=== PATIENT | female | born 1980 | race Caucasian/White ===

== ENCOUNTER 2017-12-23 10:24 | Emergency (ER) | payer MEDICAID ==
[2017-12-23 11:04] LABS: HCG UR QUAL POSITIVE
--- NOTE | 2017-12-23 13:17 | ED Physician Documentation ---
History of Present Illness - Stated complaint Stated Complaint: COUGH - Chief complaint Chief Complaint: Resp - History obtained from History obtained from: Patient - History of Present Illness Timing: How many days ago (4) Pain level max: 4 Pain level now: 3 Improved by: rest Worsened by: nothing - Additonal information Additional information: Patient states that she has been vomiting for 4 days. States diffuse, constant abd pain. 03/18. States sore throat and fevers for 3 days. Now with vaginal bleeding x 2 weeks. Has not been seen anywhere for this. Taking ibuprofen for fevers. Review of Systems Ten Systems: 10 systems reviewed and negative Constitutional: reports: Fever (subjective) Ears: denies: Ear pain Nose: reports: Rhinorrhea / runny nose, Congestion Throat: reports: Sore throat GI: reports: Nausea, Vomiting. denies: Diarrhea : reports: Now EGA (possible). denies: Dysuria, Frequency, Hesitancy Skin: denies: Rash Musculoskeletal: denies: Neck pain, Back pain PD PAST MEDICAL HISTORY - Past Medical History Past Medical History: No - Past Surgical History Past Surgical History: No - Present Medications Home Medications: Ambulatory Orders Medication Instructions Recorded Confirmed Metoclopramide [Reglan] 5 - 10 mg PO Q6H PRN #20 tablet 12/23/17 - Allergies Allergies/Adverse Reactions: Allergies Allergy/AdvReac Type Severity Reaction Status Date / Time No Known Drug Allergies Allergy Verified 12/23/17 10:37 - Social History Does the pt smoke?: Yes Smoking Status: Current every day smoker Does the pt drink ETOH?: Yes Does the pt have substance abuse?: No - Immunizations Immunizations are current?: Yes PD ED PE NORMAL - Vitals Vital signs reviewed: Yes - General General: Alert and oriented X 3, No acute distress - HEENT HEENT: PERRL, Ears normal, Moist mucous membranes, Other (Mild posterior pharyngeal erythema without tonsillar exudates. Uvula midline. No trismus.) - Neck Neck: Supple, no meningeal sign, No adenopathy - Cardiac Cardiac: RRR, Strong equal pulses - Respiratory Respiratory: No respiratory distress, Clear bilaterally - Abdomen Abdomen: Soft, Non distended, Other (diffusely tender to palpation without peritoneal signs.) - Female Female : Pt declined (States her bleeding is now mostly resolved) - Back Back: No CVA TTP, No spinal TTP - Derm Derm: Warm and dry - Neuro Neuro: Alert and oriented X 3 - Psych Psych: Normal mood, Normal affect Results - Vitals Vitals: Vital Signs - 24 hr 12/23/17 12/23/17 12/23/17 10:34 15:33 17:39 Temperature 36.6 C Heart Rate 77 60 61 Respiratory 18 16 16 Rate Blood Pressure 137/80 H 126/70 135/86 H O2 Saturation 98 97 100 Oxygen O2 Source Room air - Labs Labs: Laboratory Tests 12/23/17 12/23/17 12/23/17 10:39 10:40 13:59 WBC 6.1 RBC 4.46 Hgb 13.8 Hct 39.6 MCV 88.9 MCH 31.0 MCHC 34.9 RDW 13.2 Plt Count 203 MPV 8.5 Neut # 3.1 Lymph # 2.2 Rush # 0.5 Eos # 0.1 Baso # 0.1 Absolute Nucleated RBC 0.00 Nucleated RBC % 0.0 Sodium Potassium Chloride Carbon Dioxide Anion Gap BUN Creatinine Estimated GFR (MDRD) Glucose Calcium Total Bilirubin AST ALT Alkaline Phosphatase Total Protein Albumin Globulin Albumin/Globulin Ratio Lipase HCG, Quant Ur Specific [place] 1.010 Urine HCG, Qual POSITIVE Influenza A (Rapid) Negative Influenza B (Rapid) Negative Influenza Types A,B Ag - Blood Type Antibody Screen 12/23/17 12/23/17 12/23/17 13:59 13:59 13:59 WBC RBC Hgb Hct MCV MCH MCHC RDW Plt Count MPV Neut # Lymph # Rush # Eos # Baso # Absolute Nucleated RBC Nucleated RBC % Sodium 137 Potassium 3.1 L Chloride 104 Carbon Dioxide 25 Anion Gap 8.0 BUN 7 Creatinine 0.6 Estimated GFR (MDRD) 114 Glucose 82 Calcium 8.4 L Total Bilirubin 0.4 AST 34 ALT 40 Alkaline Phosphatase 51 Total Protein 6.6 L Albumin 3.9 Globulin 2.7 Albumin/Globulin Ratio 1.4 Lipase 12 L HCG, Quant 24515.00 Ur Specific [place] Urine HCG, Qual Influenza A (Rapid) Influenza B (Rapid) Influenza Types A,B Ag Blood Type O NEGATIVE Antibody Screen NEGATIVE - Rads (name of study) Pelvic ultrasound Radiology: Prelim report reviewed, EMP read contemporaneously, See rad report ( Single viable intrauterine at EGA 6 weeks 4 days with RIGOBERTO 08/14/2018 based on crown-rump length, which is concordant with clinical dates. Signed dating is RIGOBERTO 08/18/2018 based on LMP. Complex heather-gestational fluid collection) PD MEDICAL DECISION MAKING - ED course Complexity details: reviewed results, re-evaluated patient, considered differential, d/w patient, d/w family ED course: Patient is a 37-year-old female presents to the emergency department with what appears to be a viral upper respiratory infection. This appears to be complicated by a 6 week . There is a heart rate and a viable IUP. Will refer to OB for further care. Declines a pelvic examination here. We will continue supportive care for her viral URI. No evidence of pneumonia, sepsis. Will prescribe Reglan for vomiting. Tolerating p.o. well here. Feels better after IV fluids. Patient counseled regarding signs and symptoms for which I believe and urgent re-evaluation would be necessary. Patient with good understanding of and agreement to plan and is comfortable going home at this time This document was made in part using voice recognition software. While efforts are made to proofread this document, sound alike and grammatical errors may occur. Departure - Departure Disposition: 01 Home, Self Care Clinical Impression: Threatened affecting intrauterine Upper respiratory tract infection Qualifiers: URI type: unspecified URI Qualified Code(s): J06.9 - Acute upper respiratory infection, unspecified Qualifiers: Weeks of gestation: less than 8 weeks Qualified Code(s): Z3A.01 - Less than 8 weeks gestation of Condition: Good Instructions: ED Miscarriage Poss, ED Care Follow-Up: [facility] [Provider Group] - Within 3 Days (for recheck of your HCG levels) Prescriptions: Metoclopramide [Reglan] 5 - 10 mg PO Q6H PRN #20 tablet PRN Reason: Nausea / Vomiting Comments: Drink plenty of fluids and rest. It appears that you are approximately 6 weeks today. you need to follow-up with OB for further care. Discharge Date/Time: 12/23/17 17:44
[2017-12-23] MEDS ORDERED: SODIUM CHLORIDE 0.9% 1,000 ML IV ONE (13:20)
[2017-12-23 14:11] LABS: BASOPHILS # (AUTO) 0.1 10^3/uL (0.0-0.1); BASOPHILS % (AUTO) 1.2 %; EOSINOPHILS # (AUTO) 0.1 10^3/uL (0.0-0.7); EOSINOPHILS % (AUTO) 2.3 %; HGB - HEMOGLOBIN 13.8 g/dL (12.0-16.0); LYMPHOCYTES # (AUTO) 2.2 10^3/uL (1.5-3.5); MEAN CORPUSCULAR HGB CONC 34.9 g/dL (32.0-36.0); MEAN CORPUSCULAR VOLUME 88.9 fL (81.0-99.0); MEAN PLATELET VOLUME 8.5 fL (7.9-10.8); MONOCYTES # (AUTO) 0.5 10^3/uL (0.0-1.0); MONOCYTES % (AUTO) 7.5 %; NEUTROPHILS # (AUTO) 3.1 10^3/uL (1.5-6.6); PLT - PLATELET COUNT 203 10^3/uL (130-450); RED BLOOD COUNT 4.46 10^6/uL (4.20-5.40); RED CELL DISTRIBUTION WIDTH 13.2 % (12.0-15.0); WHITE BLOOD COUNT 6.1 x10^3/uL (4.8-10.8)
[2017-12-23 14:26] LABS: ALBUMIN 3.9 g/dL (3.2-5.5); ALBUMIN/GLOBULIN RATIO 1.4 (1.0-2.2); BILIRUBIN,TOTAL 0.4 mg/dL (0.2-1.0); CALCIUM 8.4 mg/dL (8.5-10.3); CREATININE 0.6 mg/dL (0.4-1.0); TOTAL PROTEIN 6.6 g/dL (6.7-8.2)
[2017-12-23] MEDS ORDERED: ACETAMINOPHEN 325 MG TABLET PO STA (15:40)
[2017-12-23 17:40] VITALS: BP 135/86
--- NOTE | 2017-12-23 17:44 | Ultrasound Preliminary Report ---
Exam: US OB FIRST TRIMESTER IMPRESSION: 1. Single viable intrauterine at EGA 6 weeks 4 days with RIGOBERTO 08/14/2018 based on crown-rump length, which is concordant with clinical dates. 2. Assigned dating is RIGOBERTO 08/18/2018 based on LMP. 3. Complex perigestational fluid collection. [facility] SITE ID: [id number]
--- NOTE | 2017-12-23 17:44 | Ultrasound Report ---
EXAM: FIRST TRIMESTER OBSTETRIC ULTRASOUND (Less than 11 weeks) EXAM DATE: 12/23/2017 05:17 PM. CLINICAL HISTORY: Abd pain, vag bleed, + preg test. LMP: 11/11/2017. COMPARISONS: None. TECHNIQUE: Transabdominal and transvaginal ultrasound examination with static image documentation. CLINICAL DATES: EGA 6 weeks 0 days with RIGOBERTO 08/18/2018 based on LMP. ASSESSMENT: Gestational Sac: Single intrauterine. Mean gestational sac diameter: 16.8 mm = 6 weeks 0 days. Embryo: CRL (crown-rump length) 6.8 mm = 6 weeks 4 days. Cardiac activity: 135 beats per minute. Yolk sac: 2.5 mm. Amniotic fluid: Not accurately assessed at this gestational age. Early placenta: Not visible at this gestational age. Other: Complex perigestational fluid collection measuring 18.5 x 15.5 x 29.5 mm. MATERNAL STRUCTURES: Uterus: Anteverted. Unremarkable. Cervix: Closed. Right Ovary/Adnexa: Unremarkable. The ovary measures 2.9 x 1.6 x 2.5 cm, volume 6.0 cc. Left Ovary/Adnexa: Unremarkable. The ovary measures 2.3 x 1.3 x 2.4 cm, volume 3.8 cc. Free Fluid: None. Other: None. IMPRESSION: 1. Single viable intrauterine at EGA 6 weeks 4 days with RIGOBERTO 08/14/2018 based on crown-rump length, which is concordant with clinical dates. 2. Assigned dating is RIGOBERTO 08/18/2018 based on LMP. 3. Complex perigestational fluid collection. [facility] Referring Provider Line: [phone] SITE ID: [id number]
== END 2017-12-23 17:44 | disposition home or self-care (01) ==
LOC: ED 10:24
DX: O20.0 Threatened abortion (principal); O99.511 Diseases of the respiratory system complicating pregnancy, first trimester; J06.9 Acute upper respiratory infection, unspecified; B97.89 Other viral agents as the cause of diseases classified elsewhere; Z3A.01 Less than 8 weeks gestation of pregnancy; F17.200 Nicotine dependence, unspecified, uncomplicated
CPT/HCPCS: 36415; 76801; 76830; 80053; 81025; 83690; 84702; 85025; 86850; 86900; 86901; 87275; 87276; 96360; 96361; 99283; 99284; A9270; 81001; 81003; 87086

== ENCOUNTER 2018-01-30 08:00 | Outpatient (CLI) | payer MEDICAID | END 2018-01-30 08:01 | disposition home or self-care (01) | LOC: LAB.R 08:00 | PROVIDERS: ATTEND Obstetrics & Gynecology | DX: Z11.3 Encounter for screening for infections with a predominantly sexual mode of transmission (principal) | CPT/HCPCS: 87491; 87591 ==

== ENCOUNTER 2018-01-31 09:47 | Outpatient (CLI) | payer MEDICAID ==
[2018-01-31 10:20] LABS: BASOPHILS % (AUTO) 0.4 %; EOSINOPHILS # (AUTO) 0.2 10^3/uL (0.0-0.7); EOSINOPHILS % (AUTO) 2.3 %; HGB - HEMOGLOBIN 13.5 g/dL (12.0-16.0); LYMPHOCYTES % (AUTO) 17.6 %; MEAN CORPUSCULAR HEMOGLOBIN 31.4 pg (27.0-31.0); MEAN CORPUSCULAR HGB CONC 35.4 g/dL (32.0-36.0); MEAN CORPUSCULAR VOLUME 88.6 fL (81.0-99.0); MEAN PLATELET VOLUME 7.9 fL (7.9-10.8); MONOCYTES # (AUTO) 0.6 10^3/uL (0.0-1.0); MONOCYTES % (AUTO) 5.1 %; NEUTROPHILS # (AUTO) 8.3 10^3/uL (1.5-6.6); NEUTROPHILS % (AUTO) 74.6 %; PLT - PLATELET COUNT 265 10^3/uL (130-450); RED BLOOD COUNT 4.29 10^6/uL (4.20-5.40); RED CELL DISTRIBUTION WIDTH 13.1 % (12.0-15.0); WHITE BLOOD COUNT 11.1 x10^3/uL (4.8-10.8)
[2018-01-31 10:48] LABS: BILIRUBIN,URINE NEGATIVE (NEGATIVE); GLUCOSE, URINE (UA) NEGATIVE (NEGATIVE); KETONES,URINE (UA) NEGATIVE (NEGATIVE); LEUKOCYTE ESTERASE, URINE NEGATIVE (NEGATIVE); NITRITE,URINE NEGATIVE (NEGATIVE); OCCULT BLOOD,URINE NEGATIVE (NEGATIVE); PROTEIN,URINE NEGATIVE (NEGATIVE); UROBILINOGEN,URINE 0.2 (NORMAL) E.U./dL (NORMAL)
[2018-01-31 10:50] LABS: CLARITY,URINE CLEAR (CLEAR)
[2018-01-31 11:01] LABS: BACTERIA,URINE Rare /HPF (None Seen); RBC,URINE 0-5 /HPF (0-5); SQUAMOUS EPITHELIAL CELL,UR RARE Squamous (<= Few)
[2018-02-01 14:32] LABS: HEPATITIS B SURFACE ANTIGEN NON-REACTIVE (NON-REACTIVE)
[2018-02-01 14:48] LABS: HIV AG/AB 4TH GEN NON-REACTIVE (NON-REACTIVE)
== END 2018-01-31 09:48 | disposition home or self-care (01) ==
LOC: LAB 09:47
PROVIDERS: ATTEND Obstetrics & Gynecology
DX: Z36.9 Encounter for antenatal screening, unspecified (principal)
CPT/HCPCS: 36415; 81001; 81599; 85025; 86592; 86762; 86850; 86900; 86901; 87340; 87389

== ENCOUNTER 2018-02-26 16:08 | Outpatient (CLI) | payer MEDICAID ==
--- NOTE | 2018-02-27 10:55 | XRAY Report ---
TWO VIEW CHEST: 02/26/2018 CLINICAL INDICATION: Old myocardial infarction. FINDINGS: Frontal and lateral views of the chest demonstrate a normal cardiac silhouette. The lungs are clear. No effusion or pneumothorax is present. IMPRESSION: NORMAL CHEST. TD: 02/27/2018 10:33
== END 2018-02-26 16:09 | disposition home or self-care (01) ==
LOC: DI.N 16:08
PROVIDERS: ATTEND Obstetrics & Gynecology
DX: I25.2 Old myocardial infarction (principal)
CPT/HCPCS: 71046

== ENCOUNTER 2018-02-28 09:13 | Outpatient (CLI) | payer MEDICAID | END 2018-02-28 09:14 | disposition home or self-care (01) | LOC: DI 09:13 | PROVIDERS: ATTEND Obstetrics & Gynecology | DX: I25.2 Old myocardial infarction (principal); I51.7 Cardiomegaly | CPT/HCPCS: 93005; 93306 ==

== ENCOUNTER 2018-11-11 22:44 | Emergency (ER) | payer MEDICAID ==
[2018-11-11 23:02] VITALS: BP 160/109
[2018-11-11] MEDS ORDERED: IBUPROFEN 800 MG TABLET PO STA (23:08)
[2018-11-11] MEDS ORDERED: BENZONATATE 100 MG CAPSULE PO STA (23:08)
--- NOTE | 2018-11-11 23:10 | ED Physician Documentation ---
PD HPI URI - Stated complaint Stated Complaint: SOA/FEVER - Chief complaint Chief Complaint: Resp - History obtained from History obtained from: Patient - History of Present Illness Timing - onset: How many weeks ago (More than one week.) Timing details: Gradual onset Associated symptoms: Fever, Chills, Nasal congestion, Sore throat, Productive cough Contributing factors: Sick contact ( daughter is sick with similar symptoms.) Similar symptoms before: Has not had sx before - Additional information Additional information: The patient is a 38-year-old female who presents with cough of more than 1 week duration, with associated fever and chills, myalgias, and sore throat. Her cough is mildly productive of sputum. She reports associated headache. She denies abdominal pain, nausea or vomiting. Her infant daughter has been sick with similar symptoms. Review of Systems Constitutional: reports: Fever, Chills, Myalgias, Fatigue Eyes: denies: Irritation Ears: denies: Ear pain Nose: reports: Congestion Throat: reports: Sore throat Cardiac: denies: Chest pain / pressure Respiratory: reports: Cough. denies: Dyspnea GI: denies: Abdominal Pain, Nausea, Vomiting : denies: Dysuria Skin: denies: Rash Musculoskeletal: denies: Back pain Neurologic: reports: Headache PD PAST MEDICAL HISTORY - Past Medical History Past Medical History: No Endocrine/Autoimmune: None - Past Surgical History Past Surgical History: No - Present Medications Home Medications: Ambulatory Orders Medication Instructions Recorded Confirmed Benzonatate [Tessalon Perle] 100 - 200 mg PO TID PRN #30 capsule 11/11/18 - Allergies Allergies/Adverse Reactions: Allergies Allergy/AdvReac Type Severity Reaction Status Date / Time No Known Drug Allergies Allergy Verified 11/11/18 23:02 - Social History Does the pt smoke?: No Smoking Status: Never smoker Does the pt drink ETOH?: Yes Does the pt have substance abuse?: No - Immunizations Immunizations are current?: Yes - POLST Patient has POLST: No PD ED PE NORMAL - Vitals Vital signs reviewed: Yes (Initially hypertensive.) - General General: Alert and oriented X 3, Well developed/nourished, Other (Appears miserable.) - HEENT HEENT: Atraumatic, EOMI, Ears normal, Pharynx benign - Neck Neck: Supple, no meningeal sign, No adenopathy - Cardiac Cardiac: RRR, No murmur - Respiratory Respiratory: Clear bilaterally - Abdomen Abdomen: Soft, Non tender - Back Back: No CVA TTP - Derm Derm: No rash - Extremities Extremities: No edema, No calf tenderness / cord - Neuro Neuro: Alert and oriented X 3, No motor deficit, Normal speech Results - Vitals Vitals: Vital Signs - 24 hr 11/11/18 22:59 Temperature 36.4 C L Heart Rate 97 Respiratory 16 Rate Blood Pressure 160/109 H O2 Saturation 95 Oxygen O2 Source Room air - Labs Labs: Laboratory Tests 11/11/18 23:20 Influenza A (Rapid) Negative Influenza B (Rapid) Negative PD MEDICAL DECISION MAKING - ED course Complexity details: reviewed results, re-evaluated patient, considered differential, d/w patient ED course: The patient's presentation is most consistent with viral upper respiratory infection. Her clinical presentation does not suggest meningitis, pneumonitis, otitis media, or acute pharyngitis. Treatment in the emergency department included administration of Ibuprophen 800 mg orally, and Tessalon 100 mg orally. I discussed with her and her family the expected course of illness, symptomatic treatment and outpatient follow-up, as well as potentially worrisome signs or symptoms that should prompt reevaluation in the emergency department. Departure - Departure Disposition: 01 Home, Self Care Clinical Impression: Viral URI with cough Condition: Stable Instructions: ED Upper Resp Infec No Abx Tx Prescriptions: Benzonatate [Tessalon Perle] 100 - 200 mg PO TID PRN #30 capsule PRN Reason: Cough Comments: Your symptoms are most consistent with a viral upper respiratory infection. Antibiotics are not clinically indicated for this type of viral infection. Treatment should be geared toward managing symptoms: Drink plenty of fluids. Use Tylenol or ibuprofen as needed for fever or discomfort. You can use Tessalon as prescribed if needed for cough. Wash your hands frequently, and cover your cough. Follow up with your primary physician, or return to the emergency department, if not improving within 1-2 weeks. Return to the emergency department if you develop increasing difficulty breathing, or otherwise worsening symptoms.
== END 2018-11-11 23:42 | disposition home or self-care (01) ==
LOC: ED 22:44
DX: J06.9 Acute upper respiratory infection, unspecified (principal); B34.9 Viral infection, unspecified
CPT/HCPCS: 87275; 87276; 99283; A9270

== ENCOUNTER 2019-12-14 12:53 | Emergency (ER) | payer MEDICAID ==
[2019-12-14 13:29] LABS: BILIRUBIN,URINE NEGATIVE (NEGATIVE); GLUCOSE, URINE (UA) NEGATIVE (NEGATIVE); KETONES,URINE (UA) NEGATIVE (NEGATIVE); LEUKOCYTE ESTERASE, URINE NEGATIVE (NEGATIVE); NITRITE,URINE NEGATIVE (NEGATIVE); OCCULT BLOOD,URINE NEGATIVE (NEGATIVE); PH,URINE 6.5 PH (5.0-7.5); PROTEIN,URINE NEGATIVE (NEGATIVE); UROBILINOGEN,URINE 0.2 (NORMAL) E.U./dL (NORMAL)
[2019-12-14 13:37] LABS: CLARITY,URINE CLEAR (CLEAR)
[2019-12-14 13:41] LABS: HCG UR QUAL NEGATIVE
[2019-12-14] MEDS ORDERED: KETOROLAC 30 MG/ML VIAL IVP STA (15:11)
[2019-12-14] MEDS ORDERED: SODIUM CHLORIDE 0.9% 1,000 ML IV ONE (15:11)
--- NOTE | 2019-12-14 15:12 | ED Physician Documentation ---
PD HPI ABD PAIN - Stated complaint Stated Complaint: N/V/ABD PX - Chief complaint Chief Complaint: Abd Pain - History obtained from History obtained from: Patient - History of Present Illness Timing - onset: Other (This is a 39-year-old woman who is pretty healthy but I guess had a septic myocardial infarction a long time ago. She has been amenorrheic since the of her daughter 17 months ago but is still breast- feeding. Starting 4 days ago she developed vomiting and subsequently has developed pelvic pain. She has not vomited since yesterday but the pelvic pain is worsening and radiating to both flanks. It does not lateralize. She is had chills but no fevers. No sick contacts. No history of surgeries. No recent travel.) Review of Systems Ten Systems: 10 systems reviewed and negative Constitutional: reports: Chills. denies: Fever Nose: denies: Rhinorrhea / runny nose, Congestion Cardiac: denies: Chest pain / pressure, Palpitations Respiratory: denies: Dyspnea, Cough PD PAST MEDICAL HISTORY - Past Medical History Endocrine/Autoimmune: None - Past Surgical History Past Surgical History: No - Present Medications Home Medications: Ambulatory Orders Medication Instructions Recorded Confirmed Hydrocodone/Acetaminophen 1 - 2 each PO Q6H PRN #10 tablet 12/14/19 [Hydrocodon-Acetaminophen 5-325] - Allergies Allergies/Adverse Reactions: Allergies Allergy/AdvReac Type Severity Reaction Status Date / Time No Known Drug Allergies Allergy Verified 12/14/19 13:00 - Social History Does the pt smoke?: No Smoking Status: Never smoker Does the pt drink ETOH?: Yes Does the pt have substance abuse?: No - Immunizations Immunizations are current?: Yes - POLST Patient has POLST: No PD ED PE NORMAL - Vitals Vital signs reviewed: Yes - General General: Alert and oriented X 3, No acute distress - HEENT HEENT: PERRL, EOMI - Neck Neck: Supple, no meningeal sign, No bony TTP - Cardiac Cardiac: RRR, No murmur - Respiratory Respiratory: No respiratory distress, Clear bilaterally - Abdomen Abdomen: Normal bowel sounds, Soft, Other (Mild suprapubic tenderness and bilateral lower quadrant tenderness without surgical signs) - Back Back: No CVA TTP, No spinal TTP - Derm Derm: Normal color, Warm and dry - Extremities Extremities: No edema, No calf tenderness / cord - Neuro Neuro: Alert and oriented X 3, Normal speech Results - Vitals Vitals: Vital Signs - 24 hr 12/14/19 12/14/19 12:56 15:00 Temperature 37.1 C 36.7 C Heart Rate 130 H 97 Respiratory 24 20 Rate Blood Pressure 150/106 H 118/96 H O2 Saturation 96 98 Oxygen O2 Source Room air - Labs Labs: Laboratory Tests 12/14/19 12/14/19 12/14/19 13:02 15:55 15:55 WBC 8.3 RBC 4.96 Hgb 14.5 Hct 42.7 MCV 86.1 MCH 29.2 MCHC 34.0 RDW 12.9 Plt Count 258 MPV 10.5 Neut # (Auto) 6.0 Lymph # (Auto) 1.6 [place] # (Auto) 0.6 Eos # (Auto) 0.0 Baso # (Auto) 0.0 Absolute Nucleated RBC 0.00 Nucleated RBC % 0.0 Sodium 138 Potassium 3.1 L Chloride 103 Carbon Dioxide 24 Anion Gap 11.0 BUN 8 Creatinine 0.7 Estimated GFR (MDRD) 94 Glucose 90 Calcium 9.0 Total Bilirubin 0.5 AST 31 ALT 43 Alkaline Phosphatase 84 Total Protein 7.1 Albumin 4.3 Globulin 2.8 Albumin/Globulin Ratio 1.5 Lipase 27 Urine Color YELLOW Urine Clarity CLEAR Urine pH 6.5 Ur Specific [place] <=1.005 Urine Protein NEGATIVE Urine Glucose (UA) NEGATIVE Urine Ketones NEGATIVE Urine Occult Blood NEGATIVE Urine Nitrite NEGATIVE Urine Bilirubin NEGATIVE Urine Urobilinogen 0.2 (NORMAL) Ur Leukocyte Esterase NEGATIVE Ur Microscopic Review NOT INDICATED Urine Culture Comments NOT INDICATED Urine HCG, Qual NEGATIVE - Rads (name of study) CT A/P Radiology: EMP read contemporaneously (esophagitis and LAD upper abd) PD MEDICAL DECISION MAKING - ED course ED course: 39-year-old woman with lower abdominal pain, some evidence of esophagitis on CT but nothing in the lower abdomen and that would not be expected to have. She was nontender on reevaluation prior to discharge. Had some relief with Toradol. Given close return precautions. Departure - Departure Disposition: 01 Home, Self Care Clinical Impression: Abdominal pain Qualifiers: Abdominal location: lower abdomen, unspecified Qualified Code(s): R10.30 - Lower abdominal pain, unspecified Condition: Good Record reviewed to determine appropriate education?: Yes Instructions: ED Pelvic Pain [facility]O Prescriptions: Hydrocodone/Acetaminophen [Hydrocodon-Acetaminophen 5-325] 1 - 2 each PO Q6H PRN #10 tablet PRN Reason: pain Comments: Come back in 12-18 hours if not better, anytime if worse. Forms: Activity restrictions
[2019-12-14] MEDS ORDERED: IOVERSOL 320 100 ML VIAL IVP ONE ×2 (15:56→16:37)
[2019-12-14 16:01] LABS: BASOPHILS % (AUTO) 0.2 %; EOSINOPHILS % (AUTO) 0.5 %; HGB - HEMOGLOBIN 14.5 g/dL (12.0-16.0); LYMPHOCYTES # (AUTO) 1.6 10^3/uL (1.5-3.5); LYMPHOCYTES % (AUTO) 19.4 %; MEAN CORPUSCULAR HEMOGLOBIN 29.2 pg (27.0-31.0); MEAN CORPUSCULAR VOLUME 86.1 fL (81.0-99.0); MEAN PLATELET VOLUME 10.5 fL (7.9-10.8); MONOCYTES # (AUTO) 0.6 10^3/uL (0.0-1.0); NEUTROPHILS % (AUTO) 72.5 %; PLT - PLATELET COUNT 258 10^3/uL (130-450); RED BLOOD COUNT 4.96 10^6/uL (4.20-5.40); RED CELL DISTRIBUTION WIDTH 12.9 % (12.0-15.0); WHITE BLOOD COUNT 8.3 x10^3/uL (4.8-10.8)
[2019-12-14 16:10] LABS: ALBUMIN 4.3 g/dL (3.2-5.5); ALBUMIN/GLOBULIN RATIO 1.5 (1.0-2.2); BILIRUBIN,TOTAL 0.5 mg/dL (0.2-1.0); CREATININE 0.7 mg/dL (0.4-1.0); TOTAL PROTEIN 7.1 g/dL (6.7-8.2)
--- NOTE | 2019-12-14 16:52 | CT Report ---
Reason: IV only, low abd pain Procedure Date: 12/14/2019 Accession Number: [id number] / [id number] Procedure: CT - Abdomen/Pelvis W CPT Code: Final Report FULL RESULT: EXAM: CT ABDOMEN AND PELVIS EXAM DATE: 12/14/2019 04:36 PM. CLINICAL HISTORY: Low abdominal pain. COMPARISONS: None. TECHNIQUE: Routine helical CT imaging was performed through the abdomen and pelvis. IV contrast: 90 cc Optiray 320. Enteric contrast: No. Reconstructions: Coronal and sagittal. In accordance with CT protocol optimization, one or more of the following dose reduction techniques were utilized for this exam: automated exposure control, adjustment of mA and/or KV based on patient size, or use of iterative reconstructive technique. FINDINGS: Lung Bases: There are linear opacities in the lung bases, most compatible with atelectasis. Liver: The lateral segment of the left hepatic lobe extends around the spleen, which is a normal variant. No focal hepatic lesion is demonstrated. Gallbladder/Bile Ducts: Unremarkable. Spleen: Unremarkable. Pancreas: Unremarkable. Adrenal Glands: No nodules. Kidneys: No focal lesions or hydronephrosis. Peritoneal Cavity/Bowel: There appears to be a small hiatal hernia. A borderline enlarged paraesophageal lymph node is present, measuring 9 mm in short axis (series 3, image 14). No evidence of bowel obstruction or inflammation. Appendix is within normal limits. Pelvic Organs: Urinary bladder is unremarkable. Uterus and adnexal structures are unremarkable in CT appearance. No pelvic adenopathy or free fluid. Vasculature: No abdominal aortic aneurysm. The portal veins are patent. Bones: No suspicious osseous lesion. Other: None. IMPRESSION: 1. Small hiatal hernia with borderline enlarged distal paraesophageal lymph node, which may be reactive from occult esophagitis. Neoplastic process is considered unlikely given the patient's age. Suggest correlation for symptoms of esophagitis. If clinically warranted, could consider endoscopic evaluation. 2. Otherwise no findings suspicious for acute infectious or inflammatory process in the abdomen or pelvis. [facility]
[2019-12-14 17:20] VITALS: BP 126/91
== END 2019-12-14 17:24 | disposition home or self-care (01) ==
LOC: ED 12:53
DX: R10.30 Lower abdominal pain, unspecified (principal)
CPT/HCPCS: 36415; 74177; 80053; 81003; 81025; 83690; 85025; 96374; 99284; Q9967; 81001; 87086

== ENCOUNTER 2020-12-01 11:20 | Emergency (ER) | payer MEDICAID ==
--- NOTE | 2020-12-01 11:52 | ED Physician Documentation ---
History of Present Illness - Stated complaint Stated Complaint: BODY PX - Chief complaint Chief Complaint: General - Additonal information Additional information: 40-year-old female presents the emergency department for concern that she may be septic. She reports that for much of the last week she has had generalized myalgias subjective fevers body aches and vomiting. She initially presented to [facility] 11/24/2020 for concerns of a dental infection. She reports the tooth #1 in the top of her right mouth was causing her pain and she felt the pus was draining around it. She had no trismus or fever at that time. She was started on a course of penicillin and start advised to follow-up with her dentist. She did see her dentist 11/26/2020 and was changed to Augmentin which she has been consistent about taking. Since then the tooth ache has gone away but she has been persistently fatigued with generalized body aches vomiting and discomfort. She followed up with her dentist and was advised to come to the ER for further evaluation. She reports that when she was very young she developed pneumonia and ended up with a septic myocardial infarction. At this time she denies chest pain or shortness of breath but looks very uncomfortable and moaning in bed. pmh: deneis HTN, DM, asthma SOC: quit smoking 3 years ago. denies ETOH, occassional cannabis meds: augmentin, zofran, tylenol Review of Systems Constitutional: reports: Fever, Chills, Myalgias, Fatigue Eyes: reports: Reviewed and negative Ears: reports: Reviewed and negative Nose: reports: Reviewed and negative Throat: reports: Dental pain / toothache Cardiac: denies: Chest pain / pressure, Palpitations Respiratory: denies: Dyspnea, Cough GI: reports: Abdominal Pain, Nausea, Vomiting. denies: Abdominal Swelling, Constipation, Diarrhea, Hematemesis : denies: Dysuria, Frequency, Hesitancy Skin: denies: Rash Musculoskeletal: denies: Neck pain, Back pain Neurologic: reports: Generalized weakness. denies: Focal weakness, Numbness, Near syncope, Syncope, Seizure, Headache, Head injury Psychiatric: denies: Depressed, Suicidal PD PAST MEDICAL HISTORY - Past Medical History Endocrine/Autoimmune: None - Past Surgical History Past Surgical History: No - Present Medications Home Medications: Ambulatory Orders Medication Instructions Recorded Confirmed Amox/Clav 875/125 [Augmentin 1 each PO Q12H 12/01/20 12/01/20 875/125 Tab] HYDROcod/ACETAM 5/325 [[place] 5/325] 1 - 2 ea PO BID #10 12/01/20 Ibuprofen [Motrin] 600 mg PO Q6H PRN #30 tab 12/01/20 Ondansetron HCl [Zofran] 4 mg PO Q6HR PRN 12/01/20 12/01/20 Ondansetron Odt [Zofran] 4 mg TL Q6H PRN #10 tab 12/01/20 - Allergies Allergies/Adverse Reactions: Allergies Allergy/AdvReac Type Severity Reaction Status Date / Time No Known Drug Allergies Allergy Verified 12/01/20 11:27 - Social History Does the pt smoke?: No Smoking Status: Never smoker Does the pt drink ETOH?: Yes Does the pt have substance abuse?: No - Immunizations Immunizations are current?: Yes - POLST Patient has POLST: No PD ED PE EXPANDED - General General: Alert, In Pain, In distress - HEENT HEENT: Atraumatic, PERRL, Dental decay (Tooth #18 obviously decayed without gumline swelling or erythema. No tenderness elicited however in other teeth of the mouth which appear in generally good repair. No trismus. No soft palate asymmetry, swelling. Uvula is midline.) - Neck Neck: Supple w/out meningeal sx, No tenderness. No: Adenopathy - Cardiac Cardiac: Regular Rate, Radial strong equal, Femoral strong equal, Cap refill < 2 sec. No: Murmur Present - Respiratory Respiratory: Clear to ausultation luz. No: Distress, Labored - Abdomen Abdomen: Normal Bowel sounds. No: Tender to palpation - Back Back: Normal exam. No: Soft tissue tenderness, CVA TTP right - Derm Derm: Normal color, Warm and dry, Other (facial flushing, erythema, but no urticaria). No: Petecchiae, Purpura - Extremities Extremities: Normal, Tenderness (generalized tenderness with palpation of all 4 extremities). No: Deformity, Limited ROM, Pedal edema bilateral, Right calf TTP/cord, Left calf TTP/cord - Neuro Neuro: Alert and Oriented X 3, CNII-XII intact - GCS Eye Opening: Spontaneous Motor: Obeys Commands Verbal: Oriented Total: 15 Results - Vitals Vitals: Vital Signs - 24 hr 12/01/20 12/01/20 11:28 12:05 Temperature 36.8 C 37.3 C Heart Rate 92 91 Respiratory 19 18 Rate Blood Pressure 161/124 H 157/103 H O2 Saturation 95 97 Oxygen O2 Source Room air - Labs Labs: Laboratory Tests 12/01/20 12/01/20 12/01/20 11:55 11:55 11:55 WBC 7.7 RBC 5.18 Hgb 15.7 Hct 46.0 MCV 88.8 MCH 30.3 MCHC 34.1 RDW 12.4 Plt Count 299 MPV 10.2 Neut # (Auto) 5.1 Lymph # (Auto) 2.2 [place] # (Auto) 0.4 Eos # (Auto) 0.1 Baso # (Auto) 0.0 Absolute Nucleated RBC 0.00 Nucleated RBC % 0.0 Sodium 139 Potassium 3.3 L Chloride 105 Carbon Dioxide 23 Anion Gap 11.0 BUN 10 Creatinine 0.7 Estimated GFR (MDRD) 94 Glucose 106 H Lactic Acid 1.0 Calcium 9.3 Total Bilirubin 0.7 AST 24 ALT 24 Alkaline Phosphatase 57 Total Creatine Kinase 85 Total Protein 7.4 Albumin 4.2 Globulin 3.2 Albumin/Globulin Ratio 1.3 Urine Color Urine Clarity Urine pH Ur Specific [place] Urine Protein Urine Glucose (UA) Urine Ketones Urine Occult Blood Urine Nitrite Urine Bilirubin Urine Urobilinogen Ur Leukocyte Esterase Urine RBC Urine WBC Ur Squamous Epith Cells Urine Bacteria Urine Culture Comments Urine HCG, Qual 12/01/20 12/01/20 12:00 12:00 WBC RBC Hgb Hct MCV MCH MCHC RDW Plt Count MPV Neut # (Auto) Lymph # (Auto) [place] # (Auto) Eos # (Auto) Baso # (Auto) Absolute Nucleated RBC Nucleated RBC % Sodium Potassium Chloride Carbon Dioxide Anion Gap BUN Creatinine Estimated GFR (MDRD) Glucose Lactic Acid Calcium Total Bilirubin AST ALT Alkaline Phosphatase Total Creatine Kinase Total Protein Albumin Globulin Albumin/Globulin Ratio Urine Color YELLOW Urine Clarity CLEAR Urine pH 6.0 Ur Specific [place] <=1.005 Urine Protein NEGATIVE Urine Glucose (UA) NEGATIVE Urine Ketones NEGATIVE Urine Occult Blood NEGATIVE Urine Nitrite NEGATIVE Urine Bilirubin NEGATIVE Urine Urobilinogen 0.2 (NORMAL) Ur Leukocyte Esterase NEGATIVE Urine RBC 0-5 Urine WBC 0-3 Ur Squamous Epith Cells FEW Squamous Urine Bacteria None Seen Urine Culture Comments NOT INDICATED Urine HCG, Qual NEGATIVE - Rads (name of study) CXR Radiology: Final report received (no acute process) CT abd Radiology: Final report received (Recurrent abdominal pain and vomiting is not identified. No signs of enteritis or colitis. Normal appendix is not found however neither is an abnormal appendix. No secondary CT evidence of appendicitis is seen) PD MEDICAL DECISION MAKING - ED course Complexity details: reviewed old records, reviewed results, re-evaluated patient, considered differential, d/w patient ED course: 40-year-old female presents the emergency department under advisement of her dentist to rule out a septic event. She reports that for much of the last week she has had subjective fevers body aches chills abdominal pain and vomiting. She had been started on a course of penicillin and then Augmentin just over 1 week ago for right upper mouth pain. On presentation she is afebrile. She has no leukocytosis tachycardia or hypotension. In fact her vital signs are essentially normal. Lactic acid is also normal. Chest x-ray showed no signs of pneumonia urine also shows no signs of infection. She is generally tender in the abdomen without rebound or guarding. We did proceed with a CT of the abdomen that also showed no acute abnormalities. At this time the cause of her generalized discomfort is not clear though she may have a viral etiology. COVID-19 screening is pending. I have recommended patient remain at home until the test results are known. A limited amount of hydrocodone as well as ibuprofen will be prescribed for analgesia and emergent return precautions were discussed. Departure - Departure Disposition: 01 Home, Self Care Clinical Impression: Myalgia Vomiting Qualifiers: Vomiting type: unspecified Vomiting Intractability: non-intractable Nausea presence: with nausea Qualified Code(s): R11.2 - Nausea with vomiting, unspecified Condition: Stable Record reviewed to determine appropriate education?: Yes Follow-Up: [facility] [Provider Group] Prescriptions: Ibuprofen [Motrin] 600 mg PO Q6H PRN #30 tab PRN Reason: Pain HYDROcod/ACETAM 5/325 [[place] 5/325] 1 - 2 ea PO BID #10 Ondansetron Odt [Zofran] 4 mg TL Q6H PRN #10 tab PRN Reason: Nausea / Vomiting Comments: You were seen in the emergency department today for generalized body aches fatigue and vomiting. Your dentist was concerned that you may be septic. Your chest x-ray is normal there is no pneumonia. Your urine shows no signs of infection. Your blood count is also normal without a rise in the white blood cells. Your lactic acid is normal. The CT that we completed of your abdomen showed no worrisome abnormalities. We have obtained blood cultures but it may take 48 hours before we have these results. If they are positive you will be called and asked to return to the emergency department. It is possible that you have a virus causing your body aches fatigue and vomiting. I have prescribed some Zofran to help with nausea at home. It is important that you drink a lot of fluids and get plenty of rest. Please take ibuprofen for discomfort. I have prescribed a limited amount of hydrocodone. Do not drive if taking this medication it can legally intoxicated you. If at any point you feel that your symptoms are worsening, you have chest pain or shortness of air, you have black or bloody stools or vomit please return immediately to the emergency department. It is important to follow-up with your primary care doctor in follow-up of this ED visit. If unable to see your primary care Dr. Emil lazar in [place] cannot see ER patients in follow-up.
[2020-12-01] MEDS ORDERED: SODIUM CHLORIDE 0.9% 1,000 ML IV STA (11:54)
[2020-12-01] MEDS ORDERED: HYDROmorphone 1 MG/ML CARPUJECT IVP STA (11:54)
[2020-12-01 12:03] LABS: BASOPHILS % (AUTO) 0.3 %; EOSINOPHILS # (AUTO) 0.1 10^3/uL (0.0-0.7); EOSINOPHILS % (AUTO) 1.3 %; HGB - HEMOGLOBIN 15.7 g/dL (12.0-16.0); LYMPHOCYTES # (AUTO) 2.2 10^3/uL (1.5-3.5); LYMPHOCYTES % (AUTO) 28.2 %; MEAN CORPUSCULAR HEMOGLOBIN 30.3 pg (27.0-31.0); MEAN CORPUSCULAR HGB CONC 34.1 g/dL (32.0-36.0); MEAN CORPUSCULAR VOLUME 88.8 fL (81.0-99.0); MEAN PLATELET VOLUME 10.2 fL (7.9-10.8); MONOCYTES # (AUTO) 0.4 10^3/uL (0.0-1.0); MONOCYTES % (AUTO) 4.5 %; NEUTROPHILS # (AUTO) 5.1 10^3/uL (1.5-6.6); NEUTROPHILS % (AUTO) 65.6 %; PLT - PLATELET COUNT 299 10^3/uL (130-450); RED BLOOD COUNT 5.18 10^6/uL (4.20-5.40); RED CELL DISTRIBUTION WIDTH 12.4 % (12.0-15.0); WHITE BLOOD COUNT 7.7 x10^3/uL (4.8-10.8)
[2020-12-01 12:17] LABS: ALBUMIN 4.2 g/dL (3.2-5.5); ALBUMIN/GLOBULIN RATIO 1.3 (1.0-2.2); BILIRUBIN,TOTAL 0.7 mg/dL (0.2-1.0); CALCIUM 9.3 mg/dL (8.5-10.3); CREATININE 0.7 mg/dL (0.4-1.0); TOTAL PROTEIN 7.4 g/dL (6.7-8.2)
[2020-12-01 12:23] LABS: BILIRUBIN,URINE NEGATIVE (NEGATIVE); GLUCOSE, URINE (UA) NEGATIVE (NEGATIVE); KETONES,URINE (UA) NEGATIVE (NEGATIVE); LEUKOCYTE ESTERASE, URINE NEGATIVE (NEGATIVE); NITRITE,URINE NEGATIVE (NEGATIVE); OCCULT BLOOD,URINE NEGATIVE (NEGATIVE); PROTEIN,URINE NEGATIVE (NEGATIVE); UROBILINOGEN,URINE 0.2 (NORMAL) E.U./dL (NORMAL)
[2020-12-01 12:24] LABS: HCG UR QUAL NEGATIVE
[2020-12-01 12:29] LABS: CLARITY,URINE CLEAR (CLEAR); RBC,URINE 0-5 /HPF (0-5); SQUAMOUS EPITHELIAL CELL,UR FEW Squamous (<= Few)
[2020-12-01 12:30] LABS: BACTERIA,URINE None Seen /HPF (None Seen)
[2020-12-01] MEDS ORDERED: IOVERSOL 320 100 ML VIAL IVP ONE ×2 (12:52→14:55)
--- NOTE | 2020-12-01 12:58 | XRAY Report ---
PROCEDURE: Chest 1 View X-Ray INDICATIONS: myalgias, fatigue TECHNIQUE: One view of the chest was acquired. COMPARISON: 02/26/2018 FINDINGS: Surgical changes and devices: None. Lungs and pleura: No pleural effusions or pneumothorax. Lungs are clear. Mediastinum: Mediastinal contours appear normal. Heart size is normal. Bones and chest wall: No suspicious bony lesions. Overlying soft tissues appear unremarkable. IMPRESSION: No acute cardiopulmonary disease process. Reviewed by: Christin Schuster MD, PhD on 12/01/2020 12:56 PM PST Approved by: Christin Schuster MD, PhD on 12/01/2020 12:56 PM PST Station ID: [id number]
--- NOTE | 2020-12-01 13:19 | CT Report ---
PROCEDURE: Abdomen/Pelvis W INDICATIONS: abdominal pain, vomiting X 1 week CONTRAST: IV CONTRAST: Optiray 320 ml: 100 PO CONTRAST: *NO PO CONTRAST TECHNIQUE: After the administration of nonionic contrast, 5 mm thick sections acquired from the diaphragms to th e symphysis. 5 mm thick coronal and sagittal reformats were acquired. For radiation dose reduction, the following was used: automated exposure control, adjustment of mA and/or kV according to patient size. COMPARISON: 12/14/[address] FINDINGS: Image quality: Excellent. ABDOMEN: Lung bases: Lung bases are clear except for mild linear scarring anteriorly. Heart size is normal. Solid organs: Liver and spleen are normal in size and enhancement. Gallbladder appears normal where well seen Biliary system is non dilated. Pancreas enhances normally. No adrenal nodules. Kidneys demonstrate normal size and enhancement, without hydronephrosis. Peritoneum and bowel: Bowel loops demonstrate normal wall thickness and caliber. No free fluid or a ir. Nodes and vessels: No retroperitoneal or mesenteric adenopathy by size criteria. Aorta and inferior vena cava are normal in size. Miscellaneous: No ventral hernias. PELVIS: Genitourinary: Bladder wall thickness is normal. Miscellaneous: No inguinal hernias or adenopathy. Bones: No suspicious bony lesions. No vertebral body compression fractures. IMPRESSION: Source of current abdominal pain and vomiting is not identified. No sign of enteritis or colitis. A normal or abnormal appendix is not found. No secondary CT evidence of appendicitis is see n. Reviewed by: Abundio Dietrich MD on 12/01/2020 1:18 PM PST Approved by: Abundio Dietrich MD on 12/01/2020 1:18 PM PST Station ID: [id number]
[2020-12-01] MEDS ORDERED: ONDANSETRON 4 MG/2 ML VIAL IVP STA (14:24)
[2020-12-01 15:08] VITALS: BP 128/80
== END 2020-12-01 15:06 | disposition home or self-care (01) ==
LOC: ED 11:20
DX: M79.10 Myalgia, unspecified site (principal); R11.2 Nausea with vomiting, unspecified; R10.84 Generalized abdominal pain; R53.83 Other fatigue; K02.9 Dental caries, unspecified; Z20.822 Contact with and (suspected) exposure to COVID-19; Z87.891 Personal history of nicotine dependence
CPT/HCPCS: 36415; 71045; 74177; 80053; 81001; 81025; 82550; 83605; 85025; 87040; 87635; 96361; 96374; 96375; 99284; J1170; Q9967; 87086

== ENCOUNTER 2021-03-30 22:08 | Emergency (ER) | payer MEDICAID ==
[2021-03-30] MEDS ORDERED: KETOROLAC 60 MG/2 ML VIAL IM STA (22:56)
[2021-03-30] MEDS ORDERED: DEXAMETHASONE 10 MG/ML VIAL PO STA (22:56)
[2021-03-30] MEDS ORDERED: CHERRY SYRUP 10 ML UDC PO ONE (22:56)
--- NOTE | 2021-03-30 23:47 | ED Physician Documentation ---
PD HPI NECK PAIN - Stated complaint Stated Complaint: NECK SWELLING/HEAD PX - Chief complaint Chief Complaint: General - History obtained from History obtained from: Patient - History of Present Illness Timing - onset: How many weeks ago (2) Timing - duration: Weeks (2) Timing - details: Gradual onset, Still present Location: Upper, Other (bilat at insertion to occiput) Quality: Pain, Spasm, Sharp, Similar to prior episodes Associated symptoms: Numbness (UE bilat). No: Fever, Weakness, Incontinent of urine, Unable to urinate, Hematuria, Incontinent of stool Improves with: Rest, Position Worsened by: Movement Similar symptoms before: No diagnosis Recently seen: Not recently seen - Additional information Additional information: Previously well 40-year-old female has developed some pain in her neck at the base of her neck that has extended up to the occiput and she complains now of a headache and spasm of the muscles of her upper back resulting in numbness to her hands and pain shooting down her body. 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 : None HEENT: None Psych: None Musculoskeletal: None Derm: None - Past Surgical History Past Surgical History: No - Present Medications Home Medications: Ambulatory Orders Medication Instructions Recorded Confirmed Cyclobenzaprine [Flexeril] 10 mg PO TID PRN #20 tablet 03/31/21 HYDROcod/ACETAM 5/325 [[place] 5/325] 1 - 2 tablet PO Q6H PRN #14 tablet 03/31/21 - Allergies Allergies/Adverse Reactions: Allergies Allergy/AdvReac Type Severity Reaction Status Date / Time No Known Drug Allergies Allergy Verified 03/30/21 22:16 - Social History Does the pt smoke?: No Smoking Status: Never smoker Does the pt drink ETOH?: Yes Does the pt have substance abuse?: No - Immunizations Immunizations are current?: Yes - POLST Patient has POLST: No PD ED PE NORMAL - Vitals Vital signs reviewed: Yes (Hypertensive) - General General: Alert and oriented X 3, Well developed/nourished, Other (Appears to be in pain with elevator installer apprentice tone and flattened affect) - HEENT HEENT: Atraumatic, PERRL, EOMI - Neck Neck: Supple, no meningeal sign, No bony TTP, Other (There is marked tenderness to the insertion of the trapezius into the occiput bilaterally and both sides of the trapezius are intense spasm. This extends down to the insertion of the spinal accessory.) - Cardiac Cardiac: RRR, No murmur - Respiratory Respiratory: No respiratory distress, Clear bilaterally - Abdomen Abdomen: Soft, Non tender - Back Back: No CVA TTP, No spinal TTP - Derm Derm: Normal color, Warm and dry, No rash - Extremities Extremities: No deformity, No edema - Neuro Neuro: Alert and oriented X 3, count team clerk 2-12 intact, No motor deficit, No sensory deficit, Normal speech Eye Opening: Spontaneous Motor: Obeys Commands Verbal: Oriented GCS Score: 15 - Psych Psych: Normal mood, Normal affect Results - Vitals Vitals: Vital Signs - 24 hr 03/30/21 22:13 Temperature 36.6 C Heart Rate 85 Respiratory 16 Rate Blood Pressure 154/92 H O2 Saturation 97 Oxygen O2 Source Room air PD MEDICAL DECISION MAKING - ED course Complexity details: considered differential, d/w patient ED course: 40-year-old female with dense spasm to the trapezius is administered dexamethasone and Toradol with improvement in her pain we will send her home with some pain medication a muscle relaxant. Departure - Departure Disposition: 01 Home, Self Care Clinical Impression: Bilateral occipital neuralgia Condition: Stable Instructions: ED Spasm Neck No Injury Follow-Up: [facility] [Provider Group] Prescriptions: Cyclobenzaprine [Flexeril] 10 mg PO TID PRN #20 tablet PRN Reason: Spasms HYDROcod/ACETAM 5/325 [[place] 5/325] 1 - 2 tablet PO Q6H PRN #14 tablet PRN Reason: Pain Forms: Activity restrictions
[2021-03-31] MEDS ORDERED: CYCLOBENZAPRINE 10 MG Prepack 2 PO PRN (00:29)
[2021-03-31] MEDS ORDERED: HYDROcod/ACET 5/325 Prepack 4 PO STA (00:29)
[2021-03-31 00:37] VITALS: BP 121/74
== END 2021-03-31 00:54 | disposition home or self-care (01) ==
LOC: ED 22:08
DX: M54.81 Occipital neuralgia (principal)
CPT/HCPCS: 96372; 99283; 99284; A9270

== ENCOUNTER 2021-05-03 14:49 | Emergency (ER) | payer MEDICAID ==
[2021-05-03 15:04] VITALS: BP 152/81
--- NOTE | 2021-05-03 16:06 | ED Physician Documentation ---
History of Present Illness - Stated complaint Stated Complaint: THROAT PAIN, BODY ACHES - Chief complaint Chief Complaint: Heent - History obtained from History obtained from: Patient - Additonal information Additional information: Patient comes emergency department with chief complaint of several days of sore throat, cough, congestion, body aches, and decreased sense of taste. Patient states that she has not had any shortness of breath although sometimes she feels a little tight in her throat. No fevers or chills. Patient has not had any known Covid exposure. She is not vaccinated. Patient lives at home with her family and nobody has been sick with anything. No other complaints at this time. Review of Systems Ten Systems: 10 systems reviewed and negative Constitutional: reports: Myalgias, Fatigue. denies: Fever, Chills Eyes: reports: Reviewed and negative Ears: reports: Reviewed and negative Nose: reports: Rhinorrhea / runny nose, Congestion, Reviewed and negative Throat: reports: Sore throat Cardiac: reports: Reviewed and negative Respiratory: reports: Cough (Slight, dry). 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 : None HEENT: None Psych: None Musculoskeletal: None Derm: None - Past Surgical History Past Surgical History: No - Present Medications Home Medications: Ambulatory Orders Medication Instructions Recorded Confirmed Cyclobenzaprine [Flexeril] 10 mg PO TID PRN #20 tablet 03/31/21 HYDROcod/ACETAM 5/325 [[place] 5/325] 1 - 2 tablet PO Q6H PRN #14 tablet 03/31/21 - Allergies Allergies/Adverse Reactions: Allergies Allergy/AdvReac Type Severity Reaction Status Date / Time No Known Drug Allergies Allergy Verified 03/30/21 22:16 - Social History Does the pt smoke?: No Smoking Status: Never smoker Does the pt drink ETOH?: Yes Does the pt have substance abuse?: No - Immunizations Immunizations are current?: Yes - POLST Patient has POLST: No PD ED PE NORMAL - Vitals Vital signs reviewed: Yes - General General: Alert and oriented X 3, No acute distress, Well developed/nourished - HEENT HEENT: Atraumatic, PERRL, EOMI, Moist mucous membranes - Neck Neck: Supple, no meningeal sign - Cardiac Cardiac: RRR, No murmur, Strong equal pulses - Respiratory Respiratory: No respiratory distress, Clear bilaterally - Abdomen Abdomen: Soft, Non tender, Non distended - Derm Derm: Normal color, Warm and dry, No rash - Extremities Extremities: No deformity, No edema - Neuro Neuro: Alert and oriented X 3 - Psych Psych: Normal mood, Normal affect Results - Vitals Vitals: Vital Signs - 24 hr 05/03/21 14:59 Temperature 36.8 C Heart Rate 78 Respiratory 18 Rate Blood Pressure 152/81 H O2 Saturation 98 Oxygen O2 Source Room air - Labs Labs: Laboratory Tests 05/03/21 15:51 Nasal Adenovirus (PCR) NOT DETECTED Nasal B. parapertussis DNA (PCR) NOT DETECTED Nasal Coronavir 229E PCR NOT DETECTED Nasal Coronavir HKU1 PCR NOT DETECTED Nasal Coronavir NL63 PCR NOT DETECTED Nasal Coronavir OC43 PCR NOT DETECTED Nasal Enterovir/Rhinovir PCR NOT DETECTED Nasal Influenza B PCR NOT DETECTED Nasal Influenza A PCR NOT DETECTED Nasal Parainfluen 1 PCR NOT DETECTED Nasal Parainfluen 2 PCR NOT DETECTED Nasal Parainfluen 3 PCR NOT DETECTED Nasal Parainfluen 4 PCR NOT DETECTED Nasal RSV (PCR) NOT DETECTED Nasal B.pertussis DNA PCR NOT DETECTED Nasal C.pneumoniae (PCR) NOT DETECTED Chan Human Metapneumo PCR NOT DETECTED Nasal M.pneumoniae (PCR) NOT DETECTED Nasal SARS-CoV-2 (PCR) NOT DETECTED PD MEDICAL DECISION MAKING - ED course Complexity details: reviewed results, re-evaluated patient, considered differential, d/w patient ED course: Respiratory PCR panel was sent and was completely negative. We have discussed symptomatic management at home and follow-up as needed. Departure - Departure Disposition: 01 Home, Self Care Clinical Impression: Viral upper respiratory infection Condition: Stable Instructions: ED Viral Syndrome Comments: Your Covid test has been sent and is pending at this time. You will be contacted at home if this is positive. Please be sure we have a good number for you. If your Covid test is positive, you will need to be off work for 2 weeks or until your symptoms are better. Also, if your Covid positive, anybody who lives in your household should be tested too. Forms: Activity restrictions Discharge Date/Time: 05/03/21 16:36
[2021-05-03 17:01] LABS: B. PARAPERTUSSIS- RESP PCR PAN NOT DETECTED; B. PERTUSSIS- RESP PCR PANEL NOT DETECTED; C. PNEUMONIAE- RESP PCR PANEL NOT DETECTED; CORONAVIRUS 229E-RESP PCR NOT DETECTED; CORONAVIRUS HKU1-RESP PCR NOT DETECTED; CORONAVIRUS NL63-RESP PCR NOT DETECTED; CORONAVIRUS OC43-RESP PCR NOT DETECTED; HUMAN METAPNEUMOVIRUS NOT DETECTED; INFLUENZA A- RESP PCR PANEL NOT DETECTED; INFLUENZA B - RESP PCR PANEL NOT DETECTED; M. PNEUMONIAE- RESP PCR PANEL NOT DETECTED; PARAINFLUENZA VIRUS 1 NOT DETECTED; PARAINFLUENZA VIRUS 2 NOT DETECTED; PARAINFLUENZA VIRUS 3 NOT DETECTED; PARAINFLUENZA VIRUS 4 NOT DETECTED; RHINOVIRUS/ENTEROVIRUS NOT DETECTED; RSV- RESP PCR PANEL NOT DETECTED; SARS-CoV-2 -RESP PCR PANEL NOT DETECTED
== END 2021-05-03 16:36 | disposition home or self-care (01) ==
LOC: ED 14:49
DX: J06.9 Acute upper respiratory infection, unspecified (principal); Z20.822 Contact with and (suspected) exposure to COVID-19
CPT/HCPCS: 0202U; 99283; 99284

== ENCOUNTER 2021-05-29 22:41 | Emergency (ER) | payer MEDICAID ==
[2021-05-29 22:49] VITALS: BP 154/103
[2021-05-29] MEDS ORDERED: TETANUS/DIPHTHERIA/PERTUSSIS 0.5 ML SYRINGE IM ONE (23:17)
[2021-05-29] MEDS ORDERED: BACITRACIN ZINC OINT 1 PACKET TOP STA (23:22)
--- NOTE | 2021-05-29 23:25 | ED Physician Documentation ---
PD HPI SKIN - Stated complaint Stated Complaint: BUMP ON BACK OF HEAD - Chief complaint Chief Complaint: Wound - History obtained from History obtained from: Patient - Additional information Additional information: 41-year-old woman with history of cystic bump to right posterior scalp for the past year (has not changed in size) presents with shallow laceration after trying to cut out the cyst with an X-Acto blade after watching a YouTube video tonight. Patient presented to the emergency department after she was unsuccessful. She has a shallow cut to the right posterior scalp overlying the bump. 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 : None HEENT: None Psych: None Musculoskeletal: None Derm: None - Past Surgical History Past Surgical History: No - Present Medications Home Medications: Ambulatory Orders Medication Instructions Recorded Confirmed No Known Home Medications 05/29/21 05/29/21 - Allergies Allergies/Adverse Reactions: Allergies Allergy/AdvReac Type Severity Reaction Status Date / Time No Known Drug Allergies Allergy Verified 05/29/21 22:49 - Social History Does the pt smoke?: No Smoking Status: Never smoker Does the pt drink ETOH?: Yes Does the pt have substance abuse?: No - Immunizations Immunizations are current?: Yes Immunizations: TDAP current <10years - POLST Patient has POLST: No PD ED PE NORMAL - Vitals Vital signs reviewed: Yes - General General: Alert and oriented X 3, No acute distress, Well developed/nourished - HEENT HEENT: Atraumatic, PERRL, EOMI, Other (Right posterior scalp with 1 cm superficial laceration that is hemostatic. This is overlying a 1.5 cm soft fluctuant nontender mass which is cystic appearing.) - Derm Derm: Normal color, Warm and dry, Other (superficial lac R scalp) Results - Vitals Vitals: Vital Signs - 24 hr 05/29/21 22:45 Temperature 36.3 C L Heart Rate 74 Respiratory 14 Rate Blood Pressure 154/103 H O2 Saturation 100 Oxygen O2 Source Room air PD MEDICAL DECISION MAKING - ED course ED course: tdap updated 2018. advised patient to f/u with dermatology clinic. return precautions given. Departure - Departure Disposition: 01 Home, Self Care Clinical Impression: Laceration of scalp, Cyst Condition: Good Instructions: ED Laceration Small Superf No Sutr Comments: You are seen in the emergency department for a shallow cuts to your scalp. It is not big enough to put stitches or armando in, but we went ahead and cleaned and put antibiotic ointment on it. Please monitor for any signs of infection and keep it clean. Antibiotic ointment twice daily at least. You can follow-up with [facility]ology [facility] at [address] [place] [id number]. Phone number [phone]. Return to the emergency department if you have any new or worsening symptoms or other concerns.
== END 2021-05-29 23:33 | disposition home or self-care (01) ==
LOC: ED 22:41
DX: S01.01XA Laceration without foreign body of scalp, initial encounter (principal); X78.8XXA Intentional self-harm by other sharp object, initial encounter; L72.9 Follicular cyst of the skin and subcutaneous tissue, unspecified
CPT/HCPCS: 99281; 99282; A9270

== ENCOUNTER 2021-10-16 15:39 | Emergency (ER) | payer MEDICAID ==
--- NOTE | 2021-10-16 15:59 | ED Physician Documentation ---
PD HPI URI - Stated complaint Stated Complaint: FEVER,ABD PX - Chief complaint Chief Complaint: Abd Pain - History obtained from History obtained from: Patient - History of Present Illness Timing - onset: How many days ago (2) Timing duration: Days (2) Timing details: Abrupt onset, Still present Associated symptoms: Fever, Chills, Nasal congestion, Dry cough, NVD (nausea without vomiting. No diarrhea. Has severe intermittent lower abd cramping pains.). No: Dyspnea Contributing factors: Sick contact (her daughter has been sick for several days, and test resulted yesterday positive for COVID.), Unimmunized Similar symptoms before: Has not had sx before Recently seen: Not recently seen Review of Systems Constitutional: reports: Fever, Chills, Myalgias Nose: reports: Congestion Throat: denies: Sore throat Cardiac: denies: Chest pain / pressure Respiratory: reports: Dyspnea, Cough GI: reports: Abdominal Pain (today, lower abd.), Nausea. denies: Abdominal Swelling, Vomiting, Diarrhea : denies: Dysuria, Frequency, Discharge Neurologic: reports: Generalized weakness. 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 : None HEENT: None Psych: None Musculoskeletal: None Derm: None - Past Surgical History Past Surgical History: No - Present Medications Home Medications: Ambulatory Orders Medication Instructions Recorded Confirmed HYDROcod/ACETAM 5/325 [[place] 5/325] 1 ea PO Q6H PRN #14 tablet 10/16/21 Ondansetron Odt [Zofran] 4 mg TL Q6H PRN #10 tablet 10/16/21 dexAMETHasone [Decadron] 4 mg PO DAILY #3 tablet 10/16/21 - Allergies Allergies/Adverse Reactions: Allergies Allergy/AdvReac Type Severity Reaction Status Date / Time No Known Drug Allergies Allergy Verified 10/16/21 15:50 - Social History Does the pt smoke?: No Smoking Status: Never smoker Does the pt drink ETOH?: Yes Does the pt have substance abuse?: No - Immunizations Immunizations are current?: Yes Immunizations: TDAP current <10years - POLST Patient has POLST: No PD ED PE NORMAL - Vitals Vital signs reviewed: Yes - General General: Alert and oriented X 3, Well developed/nourished, Other (seems very uncomfortable with lower abd pains. ) - HEENT HEENT: Pharynx benign - Neck Neck: Supple, no meningeal sign, No adenopathy - Cardiac Cardiac: RRR, No murmur - Respiratory Respiratory: Clear bilaterally - Abdomen Abdomen: Normal bowel sounds, Soft, Non distended, No organomegaly, Other (tender lower abd left more than right, with some local percussion tender. No rebound. ) - Back Back: No CVA TTP - Derm Derm: Normal color, Warm and dry - Extremities Extremities: Normal ROM s pain - Neuro Neuro: Alert and oriented X 3, No motor deficit, Normal speech Results - Vitals Vitals: Vital Signs - 24 hr 10/16/21 10/16/21 10/16/21 15:44 15:50 16:11 Temperature 37.9 C Heart Rate 100 84 90 Respiratory 19 22 22 Rate Blood Pressure 156/92 H 154/116 H 154/116 H O2 Saturation 98 97 97 10/16/21 10/16/21 17:22 18:51 Temperature 36.6 C Heart Rate 65 70 Respiratory 17 20 Rate Blood Pressure 151/79 H O2 Saturation 98 96 Oxygen O2 Source Room air - Labs Labs: Laboratory Tests 10/16/21 10/16/21 10/16/21 16:23 16:23 16:23 WBC 3.8 L RBC 5.10 Hgb 15.5 Hct 45.3 MCV 88.8 MCH 30.4 MCHC 34.2 RDW 12.8 Plt Count 235 MPV 10.5 Neut # (Auto) 2.1 Lymph # (Auto) 1.2 L [place] # (Auto) 0.5 Eos # (Auto) 0.0 Baso # (Auto) 0.0 Absolute Nucleated RBC 0.00 Nucleated RBC % 0.0 Sodium 137 Potassium 3.2 L Chloride 101 Carbon Dioxide 22 Anion Gap 14.0 H BUN 10 Creatinine 0.9 Estimated GFR (MDRD) 70 L Glucose 87 Calcium 8.7 Total Bilirubin 0.5 AST 32 ALT 34 Alkaline Phosphatase 50 Total Protein 7.0 Albumin 3.9 Globulin 3.1 Albumin/Globulin Ratio 1.3 Lipase 31 Serum HCG, Qual NEGATIVE Urine Color Urine Clarity Urine pH Ur Specific [place] Urine Protein Urine Glucose (UA) Urine Ketones Urine Occult Blood Urine Nitrite Urine Bilirubin Urine Urobilinogen Ur Leukocyte Esterase Urine RBC Urine WBC Ur Squamous Epith Cells Urine Bacteria Ur Microscopic Review Urine Culture Comments 10/16/21 16:30 WBC RBC Hgb Hct MCV MCH MCHC RDW Plt Count MPV Neut # (Auto) Lymph # (Auto) [place] # (Auto) Eos # (Auto) Baso # (Auto) Absolute Nucleated RBC Nucleated RBC % Sodium Potassium Chloride Carbon Dioxide Anion Gap BUN Creatinine Estimated GFR (MDRD) Glucose Calcium Total Bilirubin AST ALT Alkaline Phosphatase Total Protein Albumin Globulin Albumin/Globulin Ratio Lipase Serum HCG, Qual Urine Color DARK YELLOW Urine Clarity HAZY Urine pH 5.5 Ur Specific [place] >=1.030 H Urine Protein 30 H Urine Glucose (UA) NEGATIVE Urine Ketones 15 H Urine Occult Blood NEGATIVE Urine Nitrite NEGATIVE Urine Bilirubin NEGATIVE Urine Urobilinogen 0.2 (NORMAL) Ur Leukocyte Esterase NEGATIVE Urine RBC 0-5 Urine WBC 0-3 Ur Squamous Epith Cells MANY Squamous H Urine Bacteria Few Ur Microscopic Review INDICATED Urine Culture Comments NOT INDICATED - Rads (name of study) abd/pelvic CT Radiology: Prelim report reviewed (no acute process in abd. ), See rad report PD MEDICAL DECISION MAKING - ED course Complexity details: reviewed results (no acute process on testing. Feeling improved with meds. ), considered differential (most likely COVID as her daughter is positive a few days ago. BUt has much more lower abd pain than would be expected, so will eval for additional process such as UTI< diverticulitis, cyst, etc. ), d/w patient Departure - Departure Disposition: 01 Home, Self Care Clinical Impression: Acute viral syndrome, Lower abdominal pain Condition: Stable Record reviewed to determine appropriate education?: Yes Prescriptions: dexAMETHasone [Decadron] 4 mg PO DAILY #3 tablet HYDROcod/ACETAM 5/325 [[place] 5/325] 1 ea PO Q6H PRN #14 tablet PRN Reason: Pain Ondansetron Odt [Zofran] 4 mg TL Q6H PRN #10 tablet PRN Reason: Nausea / Vomiting Comments: Your urine test, blood tests, and CT scan did not show any other acute process. Presume the abd pains relate to intestinal irritation from the viral illness. Small frequent fluids and bland food. Tylenol every 4-6 hours of regularly for the next few days and then as needed for fevers and aches. Add hydrocodone if needed for worse pains every 6 hours if needed. Hopefully this would not be needed longer than the first couple of days or so. Ondansetron every 6 hours if needed for nausea. Decadron steroid daily for a few days can help with some of the sore throat and cough type symptoms by reducing inflammation. You most likely have Covid since your daughter is sick with this and obviously have close contact. Your test will result in the next couple of days. At this point presume Covid infection. I transmitted your prescriptions to the pharmacy. We did send you home with a few medications for tonight since pharmacies will be closing. Discharge Date/Time: 10/16/21 18:59
[2021-10-16] MEDS ORDERED: ONDANSETRON 4 MG/2 ML VIAL IVP STA (16:11)
[2021-10-16] MEDS ORDERED: KETOROLAC 15 MG/ML VIAL IVP STA (16:11)
[2021-10-16] MEDS ORDERED: SODIUM CHLORIDE 0.9% 1,000 ML IV STA ×2 (16:11→16:13)
[2021-10-16 16:25] LABS: BASOPHILS % (AUTO) 0.3 %; EOSINOPHILS % (AUTO) 0.5 %; HCT - HEMATOCRIT 45.3 % (37.0-47.0); HGB - HEMOGLOBIN 15.5 g/dL (12.0-16.0); LYMPHOCYTES # (AUTO) 1.2 10^3/uL (1.5-3.5); LYMPHOCYTES % (AUTO) 31.9 %; MEAN CORPUSCULAR HEMOGLOBIN 30.4 pg (27.0-31.0); MEAN CORPUSCULAR HGB CONC 34.2 g/dL (32.0-36.0); MEAN CORPUSCULAR VOLUME 88.8 fL (81.0-99.0); MEAN PLATELET VOLUME 10.5 fL (7.9-10.8); MONOCYTES # (AUTO) 0.5 10^3/uL (0.0-1.0); MONOCYTES % (AUTO) 12.5 %; NEUTROPHILS # (AUTO) 2.1 10^3/uL (1.5-6.6); NEUTROPHILS % (AUTO) 54.5 %; PLT - PLATELET COUNT 235 10^3/uL (130-450); RED CELL DISTRIBUTION WIDTH 12.8 % (12.0-15.0); WHITE BLOOD COUNT 3.8 x10^3/uL (4.8-10.8)
[2021-10-16 16:40] LABS: ALBUMIN 3.9 g/dL (3.2-5.5); ALBUMIN/GLOBULIN RATIO 1.3 (1.0-2.2); BILIRUBIN,TOTAL 0.5 mg/dL (0.2-1.0); CALCIUM 8.7 mg/dL (8.5-10.3); CREATININE 0.9 mg/dL (0.4-1.0); POTASSIUM 3.2 mmol/L (3.5-5.0)
[2021-10-16 17:02] LABS: HCG,QUALITATIVE BLOOD NEGATIVE
[2021-10-16 17:14] LABS: GLUCOSE, URINE (UA) NEGATIVE (NEGATIVE); KETONES,URINE (UA) 15 mg/dL (NEGATIVE); LEUKOCYTE ESTERASE, URINE NEGATIVE (NEGATIVE); NITRITE,URINE NEGATIVE (NEGATIVE); OCCULT BLOOD,URINE NEGATIVE (NEGATIVE); PH,URINE 5.5 PH (5.0-7.5); PROTEIN,URINE 30 mg/dL (NEGATIVE); UROBILINOGEN,URINE 0.2 (NORMAL) E.U./dL (NORMAL)
[2021-10-16 17:24] LABS: BILIRUBIN,URINE NEGATIVE (NEGATIVE); CLARITY,URINE HAZY (CLEAR); ICTOTEST,URINE NEGATIVE
[2021-10-16] MEDS ORDERED: iohexoL-300 100 ML VIAL ONE (17:27)
[2021-10-16 17:33] LABS: BACTERIA,URINE Few /HPF (None Seen); RBC,URINE 0-5 /HPF (0-5); SQUAMOUS EPITHELIAL CELL,UR MANY Squamous (<= Few); WBC,URINE 0-3 /HPF (0-5)
[2021-10-16] MEDS ORDERED: HYDROmorphone 1 MG/ML CARPUJECT IVP STA (18:01)
[2021-10-16] MEDS ORDERED: HYDROcod/ACET 5/325 Prepack 4 PO STA (18:10)
[2021-10-16] MEDS ORDERED: ONDANSETRON ODT 4 MG Prepack 2 TL PRN (18:10)
[2021-10-16] MEDS ORDERED: iohexoL-300 100 ML VIAL IVP ONE (18:11)
--- NOTE | 2021-10-16 18:22 | CT Report ---
PROCEDURE: Abdomen/Pelvis W INDICATIONS: lower abd pain and cramps. CONTRAST: IV CONTRAST: Isovue 300 ml: 100 PO CONTRAST: *NO PO CONTRAST TECHNIQUE: After the administration of nonionic iodinated contrast, 5 mm thick sections acquired from the diaphr agms to the symphysis. 5 mm thick coronal and sagittal reformats were acquired. For radiation dose reduction, the following was used: automated exposure control, adjustment of mA and/or kV according to patient size. COMPARISON: 12/14/2019 FINDINGS: Image quality: Excellent. ABDOMEN: Lung bases: There is or atelectasis. Lung bases are otherwise clear. Inferior mediastinum is unremark able. There is mild thickening of the distal esophagus. Very small hiatal hernia. Stable subcentimete r short axis lymph node. Solid organs: Prominence of the left lobe of the liver wraps around the spleen, normal variant. Liver is otherwise unremarkable. Spleen is unremarkable. Gallbladder unremarkable Biliary system is non dilated. Pancreas enhances normally. No adrenal nodules. Kidneys demonstrate normal size and enhan cement, without hydronephrosis. Peritoneum and bowel: Stomach and small bowel are unremarkable. No evidence of obstruction. No wall t hickening or surrounding inflammation. No wall thickening of the colon. No evidence of diverticulitis . No appendicitis. No ascites or pneumoperitoneum. Nodes and vessels: No retroperitoneal or mesenteric adenopathy by size criteria. Aorta and inferior vena cava are normal in size. Miscellaneous: No ventral hernias. PELVIS: Genitourinary: Bladder wall thickness is normal. Miscellaneous: No inguinal hernias or adenopathy. Bones: No suspicious bony lesions. No vertebral body compression fractures. IMPRESSION: No acute intra-abdominal/pelvic abnormality. Small hiatal hernia with mild thickening of the distal esophagus which may be seen in the setting of reflux. Recommend clinical correlation and consider direct evaluation with endoscopy. Reviewed by: Roberto Cabral DO on 10/16/2021 5:21 PM [facility] Approved by: Roberto Cabral DO on 10/16/2021 5:21 PM [facility] Station ID: [id number]
[2021-10-16 18:59] VITALS: BP 151/79
== END 2021-10-16 18:59 | disposition home or self-care (01) ==
LOC: ED 15:39
DX: U07.1 COVID-19 (principal); R10.32 Left lower quadrant pain; K44.9 Diaphragmatic hernia without obstruction or gangrene
CPT/HCPCS: 36415; 74177; 80053; 81001; 83690; 84703; 85025; 87635; 96374; 96375; 99282; 99284; J1170; Q9967; 81003; 87086

== ENCOUNTER 2022-09-22 10:52 | Emergency (ER) | payer MEDICAID ==
[2022-09-22 11:28] LABS: BASOPHILS % (AUTO) 0.4 %; EOSINOPHILS # (AUTO) 0.1 10^3/uL (0.0-0.7); EOSINOPHILS % (AUTO) 1.3 %; HCT - HEMATOCRIT 46.1 % (37.0-47.0); HGB - HEMOGLOBIN 15.3 g/dL (12.0-16.0); LYMPHOCYTES # (AUTO) 2.1 10^3/uL (1.5-3.5); LYMPHOCYTES % (AUTO) 24.7 %; MEAN CORPUSCULAR HEMOGLOBIN 29.4 pg (27.0-31.0); MEAN CORPUSCULAR HGB CONC 33.2 g/dL (32.0-36.0); MEAN CORPUSCULAR VOLUME 88.5 fL (81.0-99.0); MEAN PLATELET VOLUME 10.3 fL (7.9-10.8); MONOCYTES # (AUTO) 0.4 10^3/uL (0.0-1.0); MONOCYTES % (AUTO) 4.5 %; NEUTROPHILS # (AUTO) 5.8 10^3/uL (1.5-6.6); PLT - PLATELET COUNT 289 10^3/uL (130-450); RED BLOOD COUNT 5.21 10^6/uL (4.20-5.40); RED CELL DISTRIBUTION WIDTH 12.7 % (12.0-15.0); WHITE BLOOD COUNT 8.4 x10^3/uL (4.8-10.8)
[2022-09-22 11:34] LABS: BILIRUBIN,URINE NEGATIVE (NEGATIVE); GLUCOSE, URINE (UA) NEGATIVE (NEGATIVE); KETONES,URINE (UA) NEGATIVE (NEGATIVE); LEUKOCYTE ESTERASE, URINE NEGATIVE (NEGATIVE); NITRITE,URINE NEGATIVE (NEGATIVE); OCCULT BLOOD,URINE NEGATIVE (NEGATIVE); PROTEIN,URINE NEGATIVE (NEGATIVE); UROBILINOGEN,URINE 0.2 (NORMAL) E.U./dL (NORMAL)
[2022-09-22 11:37] LABS: CLARITY,URINE CLEAR (CLEAR); HCG UR QUAL NEGATIVE
[2022-09-22] MEDS ORDERED: HYDROmorphone 1 MG/ML CARPUJECT IM STA (11:52)
[2022-09-22] MEDS ORDERED: ONDANSETRON ODT 4 MG TABLET TL STA (11:52)
[2022-09-22 11:55] LABS: ALBUMIN 4.6 g/dL (3.2-5.5); ALBUMIN/GLOBULIN RATIO 1.4 (1.0-2.2); BILIRUBIN,TOTAL 0.8 mg/dL (0.2-1.0); CALCIUM 9.3 mg/dL (8.5-10.3); CREATININE 0.8 mg/dL (0.4-1.0); POTASSIUM 3.8 mmol/L (3.5-5.0); TOTAL PROTEIN 7.8 g/dL (6.7-8.2)
--- NOTE | 2022-09-22 12:01 | ED Physician Documentation ---
History of Present Illness - Stated complaint Stated Complaint: ABD PX - Chief complaint Chief Complaint: Abd Pain - Additonal information Additional information: 42-year-old female presents emergency department for evaluation of 1 week diffu se lower pelvic pain. States that its been sharp. Worse with movement. She has tried Tylenol once or twice without relief. No fevers, no nausea or vomiting. No diarrhea. Reports normal bowel movements without melena or hematochezia. No pertinent past surgical history. Because of pain has failed to dima over 1 week she presents today to the ER. Review of Systems Constitutional: denies: Chills Throat: reports: Reviewed and negative Cardiac: reports: Reviewed and negative Respiratory: reports: Reviewed and negative GI: reports: Abdominal Pain. 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 HEENT: None Psych: None Musculoskeletal: None Derm: None - Past Surgical History Past Surgical History: No - Present Medications Home Medications: Ambulatory Orders Medication Instructions Recorded Confirmed HYDROcod/ACETAM 5/325 [[place] 5/325] 1 ea PO Q6H PRN #14 tablet 10/16/21 Ondansetron Odt [Zofran] 4 mg TL Q6H PRN #10 tablet 10/16/21 dexAMETHasone [Decadron] 4 mg PO DAILY #3 tablet 10/16/21 - Allergies Allergies/Adverse Reactions: Allergies Allergy/AdvReac Type Severity Reaction Status Date / Time No Known Drug Allergies Allergy Verified 10/16/21 15:50 - Social History Does the pt smoke?: No Smoking Status: Never smoker Does the pt drink ETOH?: Yes Does the pt have substance abuse?: No - Immunizations Immunizations are current?: Yes Immunizations: TDAP current <10years - POLST Patient has POLST: No PD ED PE NORMAL - General General: Alert and oriented X 3, No acute distress, Well developed/nourished - HEENT HEENT: Atraumatic, Moist mucous membranes - Neck Neck: Supple, no meningeal sign, No adenopathy - Cardiac Cardiac: RRR, No murmur - Respiratory Respiratory: No respiratory distress, Clear bilaterally - Abdomen Abdomen: Normal bowel sounds, Soft. No: Non tender (mild non focal tenderness across the lower pelvic region. no guarding, no rebound. 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 Eye Opening: Spontaneous Motor: Obeys Commands Verbal: Oriented GCS Score: 15 Results - Vitals Vitals: Vital Signs - 24 hr 09/22/22 09/22/22 11:07 13:11 Temperature 36.6 C Heart Rate 79 62 Respiratory 20 18 Rate Blood Pressure 185/100 H 174/93 H O2 Saturation 99 98 Oxygen O2 Source Room air - Labs Labs: Laboratory Tests 09/22/22 09/22/22 09/22/22 11:19 11:24 11:24 WBC 8.4 RBC 5.21 Hgb 15.3 Hct 46.1 MCV 88.5 MCH 29.4 MCHC 33.2 RDW 12.7 Plt Count 289 MPV 10.3 Neut # (Auto) 5.8 Lymph # (Auto) 2.1 [place] # (Auto) 0.4 Eos # (Auto) 0.1 Baso # (Auto) 0.0 Absolute Nucleated RBC 0.00 Nucleated RBC % 0.0 Sodium 138 Potassium 3.8 Chloride 105 Carbon Dioxide 25 Anion Gap 8.0 BUN 10 Creatinine 0.8 Estimated GFR (MDRD) 79 L Glucose 99 Calcium 9.3 Total Bilirubin 0.8 AST 28 ALT 34 Alkaline Phosphatase 62 Total Protein 7.8 Albumin 4.6 Globulin 3.2 Albumin/Globulin Ratio 1.4 Lipase 32 Urine Color YELLOW Urine Clarity CLEAR Urine pH 6.0 Ur Specific [place] >=1.030 H Urine Protein NEGATIVE Urine Glucose (UA) NEGATIVE Urine Ketones NEGATIVE Urine Occult Blood NEGATIVE Urine Nitrite NEGATIVE Urine Bilirubin NEGATIVE Urine Urobilinogen 0.2 (NORMAL) Ur Leukocyte Esterase NEGATIVE Ur Microscopic Review NOT INDICATED Urine Culture Comments NOT INDICATED Urine HCG, Qual NEGATIVE - Rads (name of study) pelvic US Radiology: Final report received (Unremarkable ultrasound examination of the uterus and bilateral ovaries) Ct abd Radiology: Final report received (No acute intra-abdominal process. Diverticulosis seen without diverticulitis) PD MEDICAL DECISION MAKING - ED course Complexity details: reviewed results, re-evaluated patient, considered differe ang, d/w patient ED course: Well-appearing 42-year-old female presents emergency department for evaluation 1 week lower abdominal/pelvic pain. She describes it as sharp and persistent. She has taken Tylenol without relief of symptoms. However she has no other associated symptoms such as nausea, vomiting, diarrhea fevers black or bloody stools. Denies constipation. No pertinent past surgical history. I did obtain a CBC and electrolytes here in the emergency department 2. My interpretation is that there are no acute worrisome findings such as leukocytosis, bandemia, thrombocytopenia. Her electrolytes without acute worrisome derangement. Urine urine showed no findings of infection or blood. On exam there was some mild nonspecific lower pelvic tenderness elicited without guarding or rebound. Pelvic ultrasound did not reveal anything to suggest ovarian cysts or torsion's. CT of the abdomen also showed no acute findings sparing some mild diverticulosis without findings of diverticulitis. At this time the cause of the lower abdominal discomfort is not clear though I am advising patient to have close follow-up with her primary care provider. Recommended brat diet over the next 24 to 48 hours with increased hydration. We discussed worrisome emergent return precautions. Departure - Departure Disposition: 01 Home, Self Care Clinical Impression: Lower abdominal pain Condition: Stable Record reviewed to determine appropriate education?: Yes Instructions: ED Abdominal Pain Cause Unkn Fem Ch Comments: You came to the emergency department today because you have had some lower abdominal pain has been ongoing for about 1 week. Here in the emergency department we did obtain a CBC, electrolytes as well as a urine. There is no findings to suggest infection or worrisome lab abnormality. Pelvic ultrasound did not reveal anything to suggest uterine fibroids ovarian torsion or ovarian cyst. We also completed a CT of the abdomen that showed no worrisome findings such as bowel obstruction, acute appendicitis or problems with the kidneys or liver. We do make an incidental note of diverticulosis. But as discussed there is nothing to suggest inflammation of the colon in this region. I encourage you to follow closely with your primary care provider. Over the next 24 to 48 hours please attempt to stay well-hydrated. Eat simple foods such as bananas, rice, applesauce and then toast. You can take [id number] medication such as 600 mg of Motrin with food 2-3 times a day or alternate with 500 mg of Tylenol. If not markedly better over the next week or so your primary care doctor may want to make further evaluation, testing or referral.
--- NOTE | 2022-09-22 12:34 | Ultrasound Report ---
PROCEDURE: Pelvic w/Transvag+Doppler Comp INDICATIONS: diffuse lower pelvic pain TECHNIQUE: Real-time scanning was performed of the pelvic organs, with image documentation. Additional endovagi nal scanning was necessary due to incomplete visualization of the adnexal and endometrial structures by transabdominal scanning. Doppler interrogation was performed of the ovaries bilaterally. COMPARISON: CT of abdomen and pelvis dated 10/16/2021 and 12/01/2020. FINDINGS: No pathologic free abdominal or pelvic fluid. Uterus: Uterus is anteverted and is normal in size at 7.1 x 3.9 x 4.5 cm. Myometrium is heterogeneo us in echo texture, no discrete uterine fibroid is seen. The endometrium measures 9.2 mm in combined thickness. No gross endometrial mass or fluid is seen. Ovaries: Right ovary measures 3.5 x 2.3 x 3.1 cm in size with a volume of 13.1 cc. Left ovary measur es 2.4 x 1.8 x 2.2 cm in size with a volume of 5 cc. No solid-appearing ovarian lesion. Less than 12 follicles are seen in each ovary. Normal appearing arterial and venous waveforms are confirmed to eac h ovary.] Other: No free pelvic fluid. IMPRESSION: Unremarkable ultrasound examination of uterus and bilateral ovaries. Reviewed by: Anupam Gregory MD on 09/22/2022 12:33 PM PST Approved by: Anupam Gregory MD on 09/22/2022 12:33 PM PST Station ID: [id number]
--- NOTE | 2022-09-22 14:11 | CT Report ---
PROCEDURE: ABDOMEN/PELVIS WO INDICATIONS: lower pelvic pain TECHNIQUE: Noncontrast 5 mm thick sections acquired from the diaphragms to the symphysis. 5 mm coronal and sagi ttal reformats were then performed. For radiation dose reduction, the following was used: automated exposure control, adjustment of mA and/or kV according to patient size. COMPARISON: 10/16/2021 and 2320. FINDINGS: Image quality: Excellent. ABDOMEN: Lung bases: Dependent atelectasis in posterior medial bilateral lung bases is seen. Heart size is no rmal. Solid organs: Liver and spleen are normal in size. Gallbladder is within normal limits. Pancreas i s normal in contours. No adrenal nodules. Kidneys are normal in size, without hydronephrosis or nep hrolithiasis. Peritoneum and bowel: Unenhanced bowel loops demonstrate normal wall thickness and caliber. No free fluid or air. Appendix is visualized and is within normal limits. A few sigmoid diverticuli are see n without sigmoid colon wall thickening or pericolonic fat stranding. No abscess collection. Nodes and vessels: No retroperitoneal or mesenteric adenopathy by size criteria. Aorta and inferior vena cava are normal in caliber. Miscellaneous: No ventral hernias. PELVIS: Genitourinary: Bladder wall thickness is normal. Miscellaneous: No inguinal hernias or adenopathy. Uterus and bilateral adnexa show no gross abnormal ities. Bones: No suspicious bony lesions. No vertebral body compression fractures. IMPRESSION: 1. No acute inflammatory process is seen in abdomen or pelvis. No free fluid of free air. Normal appe ndix. Mild sigmoid diverticulosis without evidence of acute diverticulitis. 2. Bibasilar dependent atelectasis. Reviewed by: Anupam Gregory MD on 09/22/2022 2:09 PM PST Approved by: Anupam Gregory MD on 09/22/2022 2:09 PM PST Station ID: [id number]
[2022-09-22 14:30] VITALS: BP 128/79
== END 2022-09-22 14:29 | disposition home or self-care (01) ==
LOC: ED 10:52
DX: R10.2 Pelvic and perineal pain (principal)
CPT/HCPCS: 36415; 74176; 76830; 76856; 80053; 81003; 81025; 83690; 85025; 93975; 96372; 99284; J1170; Q0162; 81001; 87086

== ENCOUNTER 2023-06-16 08:00 | Outpatient (CLI) | payer MEDICAID ==
[2023-06-16 16:15] LABS: BILIRUBIN,URINE NEGATIVE (NEGATIVE); GLUCOSE, URINE (UA) NEGATIVE (NEGATIVE); KETONES,URINE (UA) NEGATIVE (NEGATIVE); LEUKOCYTE ESTERASE, URINE NEGATIVE (NEGATIVE); NITRITE,URINE NEGATIVE (NEGATIVE); OCCULT BLOOD,URINE TRACE-LYSE (NEGATIVE); PROTEIN,URINE NEGATIVE (NEGATIVE); UROBILINOGEN,URINE 0.2 (NORMAL) E.U./dL (NORMAL)
[2023-06-16 16:28] LABS: CLARITY,URINE CLEAR (CLEAR)
[2023-06-16 16:37] LABS: BACTERIA,URINE None Seen /HPF (None Seen); RBC,URINE 0-5 /HPF (0-5); SQUAMOUS EPITHELIAL CELL,UR FEW Squamous (<= Few); WBC,URINE 0-3 /HPF (0-5)
[2023-06-16 20:19] LABS: BACTERIAL VAGINOSIS DNA POSITIVE (NEGATIVE); CANDIDA GLABRATA DNA NEGATIVE (NEGATIVE); CANDIDA GROUP DNA POSITIVE (NEGATIVE); CANDIDA KRUSEI DNA NEGATIVE (NEGATIVE); TRICHOMONAS VAGINALIS DNA NEGATIVE (NEGATIVE)
[2023-06-16 22:25] LABS: CHLAMYDIA TRACHOMATIS DNA NEGATIVE (NEGATIVE); NEISSERIA GONORRHOEAE DNA NEGATIVE (NEGATIVE); TRICHOMONAS VAGINALIS DNA NEGATIVE (NEGATIVE)
== END 2023-06-16 23:59 | disposition home or self-care (01) ==
LOC: LAB.WC 08:00
PROVIDERS: ATTEND Nurse Practitioner
DX: N89.8 Other specified noninflammatory disorders of vagina (principal); R30.0 Dysuria; R10.2 Pelvic and perineal pain; Z11.3 Encounter for screening for infections with a predominantly sexual mode of transmission
CPT/HCPCS: 81001; 81514; 81599; 87086; 87109; 87491; 87591; 87661

== ENCOUNTER 2023-06-16 15:03 | Outpatient (CLI) | payer MEDICAID ==
[2023-06-16 15:21] LABS: BASOPHILS % (AUTO) 0.3 %; EOSINOPHILS # (AUTO) 0.2 10^3/uL (0.0-0.7); EOSINOPHILS % (AUTO) 2.2 %; HGB - HEMOGLOBIN 14.5 g/dL (12.0-16.0); LYMPHOCYTES # (AUTO) 2.2 10^3/uL (1.5-3.5); LYMPHOCYTES % (AUTO) 29.7 %; MEAN CORPUSCULAR HEMOGLOBIN 29.7 pg (27.0-31.0); MEAN CORPUSCULAR HGB CONC 33.7 g/dL (32.0-36.0); MEAN CORPUSCULAR VOLUME 87.9 fL (81.0-99.0); MEAN PLATELET VOLUME 10.2 fL (7.9-10.8); MONOCYTES # (AUTO) 0.5 10^3/uL (0.0-1.0); MONOCYTES % (AUTO) 7.1 %; NEUTROPHILS # (AUTO) 4.4 10^3/uL (1.5-6.6); NEUTROPHILS % (AUTO) 60.6 %; PLT - PLATELET COUNT 301 10^3/uL (130-450); RED BLOOD COUNT 4.89 10^6/uL (4.20-5.40); RED CELL DISTRIBUTION WIDTH 12.5 % (12.0-15.0); WHITE BLOOD COUNT 7.3 x10^3/uL (4.8-10.8)
[2023-06-16 15:41] LABS: ALBUMIN 4.7 g/dL (3.2-5.5); BILIRUBIN,TOTAL 0.5 mg/dL (0.2-1.0); CALCIUM 9.5 mg/dL (8.5-10.3); CREATININE 0.7 mg/dL (0.6-1.3); POTASSIUM 3.5 mmol/L (3.5-4.5); TOTAL PROTEIN 7.1 g/dL (6.4-8.9)
--- NOTE | 2023-06-16 16:49 | Ultrasound Report ---
PROCEDURE: Pelvic w/Transvaginal INDICATIONS: PELVID PAIN,FEMALE TECHNIQUE: Real-time scanning was performed of the pelvic organs, with image documentation. Additional endovagi nal scanning was necessary due to incomplete visualization of the adnexal and endometrial structures by transabdominal scanning. COMPARISON: Pelvic ultrasound 09/22/2022. FINDINGS: Uterus: Uterus is anteverted and normal in size at 7.7 x 3.5 x 4.3 cm. The myometrium is homogeneou s. The endometrium measures 6.1 mm in combined thickness. Ovaries: The right ovary measures 2.4 x 1.4 x 2.5 cm, with a calculated ovarian volume of 4.4 cc. T he left ovary measures 2.3 x 1.5 x 2.3 cm, with a calculated ovarian volume of 4.5 cc. The ovaries h ave a normal sonographic appearance. Less than 12 follicles can be seen in each ovary. No adnexal m asses are seen. No cystic lesions measuring greater than 3 cm. Other: No pathologic free abdominal or pelvic fluid. IMPRESSION: Unremarkable exam. Reviewed by: Mitzy Sahu MD on 06/16/2023 4:48 PM PDT Approved by: Mitzy Sahu MD on 06/16/2023 4:48 PM PDT Station ID: [id number]
[2023-06-17 05:12] LABS: HBsAG SCREEN Negative (Negative); HCV AB Non Reactive (Non Reactive); HIV SCREEN 4TH GENERATION Non Reactive (Non Reactive)
[2023-06-17 06:10] LABS: RPR Non Reactive (Non Reactive)
== END 2023-06-16 15:04 | disposition home or self-care (01) ==
LOC: DI 15:03
PROVIDERS: ATTEND Nurse Practitioner
DX: R10.2 Pelvic and perineal pain (principal); R10.32 Left lower quadrant pain
CPT/HCPCS: 36415; 80053; 85025; 86592; 86803; 87340; 87389